=== PATIENT | male | born 1975 | race Caucasian/White ===

== ENCOUNTER 2020-04-28 09:43 | Day surgery (SDC) | payer OTHER ==
[~2020-04-28] VITALS: Ht 180.3 cm; Wt 88.6 kg
--- NOTE | 2020-04-28 14:56 | NUR ---
04/28/20 1456 Sofia Abbott 1454 PATIENT ARRIVES TO PACU UNRESPONSIVE TO PAIN. ORAL AIRWAY IN PLACE. MASK AT 6 LITERS. RESP EVEN AND UNLABORED.
[2020-04-28] MEDS ORDERED: HYDROCODON-ACE1 EA10 PO (15:04)
[2020-04-28] MEDS ORDERED: IBUPROFEN600 MG PO (15:04)
[2020-04-28] MEDS ORDERED: ACETAMINOPHEN500 MG PO (15:05)
--- NOTE | 2020-04-28 15:29 | NUR ---
PATIENT TO DAYSURGERY FROM PACU, BEDSIDE REPORT FROM PASCUAL RODNEY. PATIENT AWAKE AND ALERT, EATING SNACKS AND WATER. RATES PAIN 3/10 ON PAIN SCALE. DRESSING INTACT, WITH SMALL AMOUNT OF DRAINAGE. MEDICATED PATIENT PER JUL.
--- NOTE | 2020-04-28 17:03 | NUR ---
HAD FINISHED WITH DISCHARGE AND WAITING FOR PATIENT TO FINISH DRESSING WHEN PATIENT SAT BACK ON BED STATED " I FEEL DIZZY" COLLECTED VS BP 88/58 P 56 O2 SAT 100% RA. PATIENT APPEARS PALE. RESTING BACK IN BED SYMPTOMS RESOLVED. PROVIDED PATIENT WITH ICE WATER AND JUICE TO DRINK. CALL LIGHT WITHIN REACH.
--- NOTE | 2020-04-28 17:10 | NUR ---
NOTIFIED DR. DA SILVA OF PATIENT DIZZINESS AND LOW BLOOD PRESSURE. DR. DA SILVA VERBALIZED TO PUSH FLUIDS AND WHEN GETTING PATIENT UP AGAIN TO TAKE IT SLOW. PROVIDED GRAPE JUICE AND ICE WATER. PATIENT COLOR APPEARS PINK AND WARM TO TOUCH, WNL. REPEAT VSS COLLECTED.
--- NOTE | 2020-04-28 17:33 | NUR ---
PATIENT VSS. NO SYMPTOMS OF DIZZINESS. ABLE TO STAND AND TRANSFER TO WHEELCHAIR, APPEARS STEADY ON FEET. RATES PAIN 3/10 ON PAIN SCALE, TOLERABLE. SCRIPT IN HAND. PROVIDED WHEELCHAIR RIDE TO FRONT. PATIENT TRANSFERED INTO [facility].
--- NOTE | 2020-04-30 12:01 | OR ---
[facility] [address] [place], [place] [address] Signed DATE OF OPERATION: 04/28/2020 SURGEON: Mandeep Da Silva MD PREOPERATIVE DIAGNOSIS: Left direct inguinal hernia. POSTOPERATIVE DIAGNOSES: 1. Left direct inguinal hernia. 2. Cord lipoma. PROCEDURES: 1. Repair of left inguinal hernia with implantation of Prolene mesh, underlay technique. 2. Excision of cord lipoma. ANESTHESIA: General LMA, Laina Barry, EMERGENCY MEDICINE and local 20 mL of 0.25% Marcaine with epinephrine. INDICATIONS: This 44-year-old white man is a patient of Dr. Skip Antonio at [place], [place] and then began having severe left inguinal pain following significant lifting episode. He does not have a bulge externally noted, but invagination of the left hemiscrotum does confirm a "impulse" and consistent with inguinal floor hernia. He was admitted at this time to undergo repair of the left inguinal hernia. He understands the risks of bleeding, infection, recurrence, and so on. FINDINGS: There was a cord lipoma medial to the cord, which initially was thought to be an indirect sac, but rather proved to be a cord lipoma, which was excised. There was attenuation of the floor of the inguinal canal and quite enlarged inguinal ring. Repair included implantation of Prolene mesh in the properitoneal space. There were no complications. The cord structures were normal. An ilioinguinal nerve branch was identified and unharmed and not encumbered by the mesh. DESCRIPTION OF PROCEDURE: The patient was brought to the operating room, given a general LMA type anesthetic. Preoperative antibiotic Ancef was given. Sequential compression device stockings used and heparin subcutaneously administered. The lower abdomen was clipped and prepared with chlorhexidine solution and draped sterilely. An incision was made cephalad to the pubic tubercle. Dissection carried through the subcutaneous tissue with electrocautery Electronically Signed By: MANDEEP DA SILVA MD 04/30/20 1201 PATIENT NAME: MANDEEP LOVE OPERATIVE REPORT DATE OF : 77 REPORT #: [id number] PHYSICIAN: MANDEEP DA SILVA MD PCP: SKIP ANTONIO MD REPORT IS CONFIDENTIAL AND NOT TO BE RELEASED WITHOUT AUTHORIZATION [facility] [address] [place], [place] [address] Signed and blunt dissection. The external oblique was incised along its fibers revealing the underlying cord structures. An ilioinguinal nerve branch was located on the lateral aspect of the cord, it was dissected free from the cremasteric muscle fibers and reflected around the external oblique. The cord was mobilized from the floor with blunt electrocautery dissection and encircled with a [place] drain. Dissection at the origin of the cord was undertaken showing no distinct hernia sac, but did show a lipomatous mass, which initially was possibly to be herniated viscus, but upon further dissection simply represented the cord lipoma. Hemostat was cross applied across the base of it was transected and ligated with 2-0 silk tie. The ring was quite enlarged as would be expected based on clinical examination. The attenuated fibers of the fascia of the transversalis were incised with electrocautery and the properitoneal fat bluntly . The segment of Prolene mesh was cut to an elliptical configuration and secured in an underlay technique with interrupted 2-0 Prolene sutures. The defect was cut in the graft to accommodate the cord and the tails of the graft were secured laterally with special care to avoid encumbrance of the ilioinguinal nerve which was well identified. A 20 mL of 0.25% Marcaine was injected locally. The cord was placed in the canal as was the nerve and the external oblique reapproximated with running 2-0 Vicryl suture. Ashwin layer was reapproximated with interrupted 2-0 Vicryl. The skin closed with running subcuticular 3-0 Vicryl. Steri-Strips were applied as was a silver sponge dressing. The patient tolerated procedure well, was ultimately extubated and transferred to the recovery room in good condition, having suffered no complications. Sponge, needle, and instrument counts reported as correct x3. Mandeep Da Silva MD JM/MODL /[id number] cc: Skip Antonio MD Copies: SKIP ANTONIO MD ~ Electronically Signed By: MANDEEP DA SILVA MD 04/30/20 1201 PATIENT NAME: MANDEEP LOVE OPERATIVE REPORT DATE OF : 77 REPORT #: [id number] PHYSICIAN: MANDEEP DA SILVA MD PCP: SKIP ANTONIO MD REPORT IS CONFIDENTIAL AND NOT TO BE RELEASED WITHOUT AUTHORIZATION
--- NOTE | 2020-05-03 11:33 | PATH ---
[facility] [address] [place], [place] [address] Signed SPECIMEN(S): A LIPOMA OF LEFT CORD SPECIMEN SOURCE: A. LIPOMA OF LEFT CORD CLINICAL HISTORY: Pre: L inguinal hernia. Post: Same. FINAL PATHOLOGIC DIAGNOSIS: "Lipoma", left cord, excision: - Lipoma. NAL:cml:C2NR MICROSCOPIC EXAMINATION: Histologic sections of all submitted blocks are examined by light microscopy. These findings, together with the gross examination, support the pathologic diagnosis. GROSS DESCRIPTION: The specimen, labeled "Mandeep Herring," and designated on the requisition "lipoma of left cord," is received in formalin and consists of 3 g unoriented portion of yellow-chand adipose tissue that is 4.3 x 1.9 x 1.3 cm. Specimen is encased in a pink, chand transparent membranous tissue. The tissue is inked and serially sectioned revealing a yellow homogeneous cut surface. Tennis Instructor sections are submitted in cassette (A1). FB (under the direct supervision of a pathologist) The Gross Description was prepared using a voice recognition system. The report was reviewed for accuracy; however, sound-alike word errors, addition and/or deletions may occur. If there is any question about this report, please contact Client Services. PERFORMING LABORATORY: The technical component was performed by [facility], [address] [place] [id number] (Wing Coverer: Adele Olsen MD; CLIA# [id number]). Professional interpretation was performed by [facility], [address] [address] (CLIA# [id number]). Diagnostician: Jaleesa Johnson MD Pathologist PATIENT NAME: MANDEEP LOVE PATHOLOGY DATE OF : 77 REPORT #: [id number] PHYSICIAN: [facility] PCP: SKIP PEDERSEN MD REPORT IS CONFIDENTIAL AND NOT TO BE RELEASED WITHOUT AUTHORIZATION [address] [address] Signed Electronically Signed 05/03/2020 Copies: ~ PATIENT NAME: MANDEEP LOVE PATHOLOGY DATE OF : 77 REPORT #: [id number] PHYSICIAN: [facility] PCP: SKIP PEDERSEN MD REPORT IS CONFIDENTIAL AND NOT TO BE RELEASED WITHOUT AUTHORIZATION
== END 2020-04-28 17:30 | disposition home or self-care (01) ==
LOC: OPS 09:43 → DS 09:43 → OPS 11:30 → DS 11:30 → OPS 17:30
PROVIDERS: ATTEND Surgery
PROC: 0VBG0ZZ Excision of Left Spermatic Cord, Open Approach (ICD-10-PCS; 2020-04-28)
PROC: 0YU60JZ Supplement Left Inguinal Region with Synthetic Substitute, Open Approach (ICD-10-PCS; principal; 2020-04-28 11:30)
DX: K40.90 Unilateral inguinal hernia, without obstruction or gangrene, not specified as recurrent (principal); D17.6 Benign lipomatous neoplasm of spermatic cord; Z20.828 Contact with and (suspected) exposure to other viral communicable diseases
CPT/HCPCS: 00830; 88304; C1781; J0330; J0690; J1100; J1644; J1885; J2001; J2250; J2405; J2704; J7121